=== PATIENT | male | born 1975 | race African-American/Black ===

== ENCOUNTER 2017-07-12 20:20 | Emergency (ER) | payer SELFPAY | END 2017-07-12 22:47 | disposition home or self-care (01) | LOC: ERS 20:20 | DX: J20.9 Acute bronchitis, unspecified (principal); F17.210 Nicotine dependence, cigarettes, uncomplicated | CPT/HCPCS: 87081; 87430; 99283 ==

== ENCOUNTER 2018-08-21 18:53 | Emergency (ER) | payer SELFPAY ==
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
[2018-08-21] MEDS ORDERED: Ketorolac Tromethamine 30 MG/ML VIAL ONE (20:19)
[2018-08-21] MEDS ORDERED: CEFAZOLIN 1 GM VIAL ONE (20:45)
[2018-08-21] MEDS ORDERED: Sterile Water 10 ML ONE (20:46)
== END 2018-08-22 10:30 | disposition home or self-care (01) ==
LOC: ERS 18:53
DX: S62.632A Displaced fracture of distal phalanx of right middle finger, initial encounter for closed fracture (principal); F17.210 Nicotine dependence, cigarettes, uncomplicated; W23.0XXA Caught, crushed, jammed, or pinched between moving objects, initial encounter
CPT/HCPCS: 96372; A4216; J0690; J1885

== ENCOUNTER 2018-11-04 01:05 | Emergency (ER) | payer SELFPAY ==
[2018-11-04] MEDS ORDERED: Acetaminophen 500 MG TAB ONE (02:09)
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
[2018-11-04] MEDS ORDERED: ISOVUE-370 76%-LOCM 1 ML ONE (13:09)
== END 2018-11-04 03:10 | disposition home or self-care (01) ==
LOC: ERS 01:05
DX: F10.129 Alcohol abuse with intoxication, unspecified (principal); Y90.8 Blood alcohol level of 240 mg/100 ml or more; M54.2 Cervicalgia; M54.6 Pain in thoracic spine; V43.92XA Unspecified car occupant injured in collision with other type car in traffic accident, initial encounter
CPT/HCPCS: 70450; 71045; 72125; 74177; 80307; Q9966

== ENCOUNTER 2019-04-01 19:39 | Emergency (ER) | payer SELFPAY ==
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
[2019-04-01] MEDS ORDERED: HYDROcodone/Acetaminophen 7.5/325 mg Tablet ONE (22:09)
[2019-04-01] MEDS ORDERED: Lidocaine 1% (PF) 30 ML VIAL ONE (22:27)
== END 2019-04-01 23:09 | disposition home or self-care (01) ==
LOC: ERS 19:39
DX: L03.011 Cellulitis of right finger (principal); F17.210 Nicotine dependence, cigarettes, uncomplicated
CPT/HCPCS: 10060; J2001

== ENCOUNTER 2019-10-08 16:22 | Emergency (ER) | payer OTHER, SELFPAY ==
[2019-10-09 13:50] LABS: SARS-CoV-2 MS2 Positive; SARS-CoV-2 N Gene Negative; SARS-CoV-2 S Gene Negative; SARS-CoV-2 by NAA Not Detected (NotDetected); SARS-CoV-2 orf1ab Negative
== END 2019-10-08 16:49 | disposition home or self-care (01) ==
LOC: ERS 16:22
DX: Z20.828 Contact with and (suspected) exposure to other viral communicable diseases (principal); F17.210 Nicotine dependence, cigarettes, uncomplicated
CPT/HCPCS: 87635; 99283; U0003